=== PATIENT | male | born 1980 ===

== ENCOUNTER 2018-05-28 18:29 | Emergency (ER) | payer OTHER ==
[~2018-05-28] VITALS: Ht 162.6 cm; Wt 82.0 kg
[2018-05-28 18:34] VITALS: BP 150/84
== END 2018-05-28 19:23 | disposition home or self-care (01) ==
LOC: ED 19:05
DX: S09.8XXA Other specified injuries of head, initial encounter (principal); X36.1XXA Avalanche, landslide, or mudslide, initial encounter; Y93.23 Activity, snow (alpine) (downhill) skiing, snowboarding, sledding, tobogganing and snow tubing; Y92.828 Other wilderness area as the place of occurrence of the external cause; Y99.8 Other external cause status
CPT/HCPCS: 70450; 99284